=== PATIENT | male | born 1965 | race Caucasian/White ===

== ENCOUNTER 2016-09-25 10:35 | Emergency (ER) | payer OTHER ==
[~2016-09-25] VITALS: Ht 180.3 cm; Wt 76.0 kg
[~2016-09-25 10:35] MED LIST: EC-N500T7; METH500T3; OXYC-360
[2016-09-25 10:36] VITALS: BP 150/95; PULSE 77; RESP 20; TEMP 97.6; O2SAT 97
--- NOTE | 2016-09-25 11:25 | PD ---
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 pos deep lac. no numbness or tingling. pt not given any meds. vital signs stable. awaiting bed placement Data Data Last Documented VS Vital Signs Date Time Temp Pulse Resp B/P Pulse Ox O2 Delivery O2 Flow Rate FiO2 09/25/16 10:36 97.6 77 20 150/95 97 Room Air [facility] Medical Record Reviewed: Yes Supervised Visit with BO: Yes Drew Woodson Sep 25, 2016 11:25
[2016-09-25 12:00] VITALS: BP 140/82; PULSE 76; RESP 16; TEMP 97.8; O2SAT 99
[2016-09-25] MEDS ORDERED: ceFAZolin 2 GM PREMIX 50 ML IV ONE (12:15)
--- NOTE | 2016-09-25 12:17 | PD ---
HPI Chief Complaint: Injury Time Seen by Provider: 12:14 Travel History International Travel<30 days: No Contact w/Intl Traveler<30days: No Traveled to known affect area: No History of Present Illness HPI Patient is 51-year-old male presenting to emergency from for evaluation of a laceration to his left hand. Patient states he was using a flute grinder when it slipped cutting him in between his second and third fingers. Patient initially went to urgent care for treatment however the severity of the wound exceeded their capabilities patient was sent here for evaluation. Patient rates his pain as a 10 out of 10 and describes as aching and throbbing. Patient denies any weakness in his extremities. He has no significant past medical history. [facility] Past Medical History Medical History: Denies Significant Hx Diminished Hearing: No Tetanus Vaccination: > 5 Years Influenza Vaccination: No Past Surgical History Surgical History: No Previous Surgery Social History Alcohol Use: Yes (RARE) Tobacco Use: Yes Substance Use: No Allergies-Medications (Allergen,Severity, Reaction): Coded Allergies: No Known Allergies (Unverified , 09/25/16) Reported Meds & Prescriptions Reported Meds & Active Scripts Active Keflex (Cephalexin) 500 Mg Cap 500 Mg PO Q12H 7 Days Ibuprofen 800 Mg Tab 800 Mg PO Q6HR PRN Review of Systems Except as stated in HPI: all other systems reviewed are Neg Musculoskeletal: Positive: Pain Skin: Positive Other Physical Exam Narrative GENERAL: We'll developed, well-nourished, alert male. Appears uncomfortable, in no acute distress. SKIN: Focused skin assessment warm/dry. Laceration in between second and third digits on the left hand extending approximately 1 inch in between MCP's. HEAD: Atraumatic. Normocephalic. EYES: Pupils equal and round. No scleral icterus. No injection or drainage. ENT: No nasal bleeding or discharge. Mucous membranes pink and moist. NECK: Trachea midline. No JVD. CARDIOVASCULAR: Regular rate and rhythm. No murmur appreciated. RESPIRATORY: No accessory muscle use. Clear to auscultation. Breath sounds equal bilaterally. GASTROINTESTINAL: Abdomen soft, non-tender, nondistended. Hepatic and splenic margins not palpable. MUSCULOSKELETAL: No obvious deformities. No clubbing. No cyanosis. No edema. Positive radial pulse, brisk less than 3 second capillary refill. NEUROLOGICAL: Awake and alert. No obvious cranial nerve deficits. Motor grossly within normal limits. Normal speech. PSYCHIATRIC: Appropriate mood and affect; insight and judgment normal. Data Data Last Documented VS Vital Signs Date Time Temp Pulse Resp B/P Pulse Ox O2 Delivery O2 Flow Rate FiO2 09/25/16 16:00 98.1 77 16 140/78 100 Room Air Orders Hand, Complete ([id number]) (09/25/16 ) Complete Blood Count With Diff (09/25/16 12:10) Basic Metabolic Panel (Bmp) (09/25/16 12:10) Act Partial Throm Time (Ptt) (09/25/16 12:10) Prothrombin Time / Inr (Pt) (09/25/16 12:10) Iv Access Insert/Monitor (09/25/16 12:10) Cefazolin 2 Gm Premix (Ancef 2 Gm Premix (09/25/16 12:15) Tetanus/Diphtheria Tox Adult (Tetanus/Di (09/25/16 12:30) Ondansetron Inj (Zofran Inj) (09/25/16 12:30) Morphine Inj (Morphine Inj) (09/25/16 12:30) Lidocaine 2% Inj (Xylocaine 2% Inj) (09/25/16 12:30) Bupivacaine-Epi Pf 0.25% Inj (Sensorcain (09/25/16 16:00) Povidone Iodine 10% Oint (Betadine 10% O (09/25/16 18:45) Telfa Pad 3x8 (09/25/16 18:32) Labs Laboratory Tests Test 09/25/16 12:21 White Blood Count 9.5 TH/MM3 Red Blood Count 4.64 MIL/MM3 Hemoglobin 14.7 GM/DL Hematocrit 42.7 % Mean Corpuscular Volume 92.2 FL Mean Corpuscular Hemoglobin 31.6 PG Mean Corpuscular Hemoglobin 34.3 % Concent Red Cell Distribution Width 13.4 % Platelet Count 196 TH/MM3 Mean Platelet Volume 8.7 FL Neutrophils (%) (Auto) 71.5 % Lymphocytes (%) (Auto) 18.5 % Monocytes (%) (Auto) 8.2 % Eosinophils (%) (Auto) 1.1 % Basophils (%) (Auto) 0.7 % Neutrophils # (Auto) 6.8 TH/MM3 Lymphocytes # (Auto) 1.8 TH/MM3 Monocytes # (Auto) 0.8 TH/MM3 Eosinophils # (Auto) 0.1 TH/MM3 Basophils # (Auto) 0.1 TH/MM3 CBC Comment DIFF FINAL Differential Comment Prothrombin Time 12.0 SEC Prothromb Time International 1.1 RATIO Ratio Activated Partial 29.1 SEC Thromboplast Time Sodium Level 138 MEQ/L Potassium Level 4.0 MEQ/L Chloride Level 101 MEQ/L Carbon Dioxide Level 28.0 MEQ/L Anion Gap 9 MEQ/L Blood Urea Nitrogen 15 MG/DL Creatinine 0.76 MG/DL Estimat Glomerular Filtration 108 ML/MIN Rate Random Glucose 106 MG/DL Calcium Level 8.9 MG/DL MDM Medical Decision Making Medical Screen Exam Complete: Yes Emergency Medical Condition: Yes Interpretation(s) Vital Signs Date Time Temp Pulse Resp B/P Pulse Ox O2 Delivery O2 Flow Rate FiO2 09/25/16 11:52 17 98 Room Air 09/25/16 10:36 97.6 77 20 150/95 97 Room Air Differential Diagnosis Open fracture versus tendon injury versus laceration versus retained foreign body versus other Narrative Course Patient is a 51-year-old male that presented to the emergency department for evaluation of a laceration to his left hand in between the second and third fingers sending into the MCP space. Patient is neurovascularly intact. Labs reviewed and are unremarkable. X-ray of the left hand shows significant amount of retained foreign material. Left hand was anesthetized with 2% lidocaine, irri-max x2 was used to irrigate the wound thoroughly. 2 large pieces of metallic fragments were removed, it continues to be multiple pieces of small metallic particles in left hand, discussed with Dr. Peña who stated that he would come to the emergency department after he was finished with a procedure to remove remaining particles. He requested Marcaine with epinephrine as well as a plastics tray to be set up at bedside. Left hand was anesthetized with Marcaine with epinephrine as suggested by Dr. Peña. Supplies at bedside. 1820- Dr. Peña at bedside removing foreign particles. He will also repair laceration. Please see his note for procedure report. Patient given verbal instructions regarding wound/laceration care as well as signs and symptoms of infection. He was encouraged to follow-up with Dr. Peña. He was encouraged to return to emergency department for any new or worsening symptoms. Patient verbalized understanding of these instructions. Patient is stable for discharge Diagnosis Primary Impression: Laceration of hand with foreign body Qualified Code: S61.422A - Laceration of left hand with foreign body, initial encounter Referrals: Yasmin Peña MD call for appointment Dr. Peña wants to see you in the office on . Call tomorrow to schedule appointment Patient Instructions: Care For Your Stitches (ED), General Instructions, Laceration (ED) Additional Instructions: Follow up with DR. Peña as advised Complete full course of antibiotics Keep wound clean and dry, cover with non-occlusive dressing. Return to the emergency department for any new or worsening symptoms. Med/Other Pt SpecificInfo: Prescription(s) given Scripts Cephalexin (Keflex)500 Mg [id number] Mg PO Q12H 7 Days Ref 0 Prov:Tamara Babcock 09/25/16 Ibuprofen 800 Mg Bor414 Mg PO Q6HR PRN (PAIN) #40 TAB Ref 0 Prov:Tamara Babcock 09/25/16 Disposition: 01 DISCHARGE HOME Condition: Stable Tamara Babcock Sep 25, 2016 12:17
[2016-09-25] MEDS ORDERED: TETANUS/DIPHTHERIA TOXOID ADULT 0.5 ML VIAL IM ONE (12:30)
[2016-09-25] MEDS ORDERED: MORPHINE SULFATE 4 MG/ML INJ IV PUSH ONE (12:30)
[2016-09-25] MEDS ORDERED: ONDANSETRON HCL 4 MG/2 ML VIAL IV ONE (12:30)
[2016-09-25] MEDS ORDERED: LIDOCAINE HCL 2% 20 ML VIAL INFIL ONE (12:30)
[2016-09-25 12:56] LABS: AUTOMATED NEUTROPHIL # 6.8 TH/MM3 (1.8-7.7); BASOPHIL # 0.1 TH/MM3 (0-0.2); BASOPHIL % 0.7 % (0.0-2.0); EOSINOPHIL # 0.1 TH/MM3 (0-0.4); EOSINOPHIL % 1.1 % (0.0-4.0); HEMATOCRIT 42.7 % (39.0-51.0); HEMO FLAGS DIFF FINAL; LYMPH % 18.5 % (9.0-44.0); LYMPHOCYTE # 1.8 TH/MM3 (1.0-4.8); MEAN CELL VOLUME 92.2 FL (80.0-100.0); MEAN CORPUSCULAR HEMOGLOBIN 31.6 PG (27.0-34.0); MEAN CORPUSCULAR HGB CONC 34.3 % (32.0-36.0); MONO % 8.2 % (0.0-8.0); NEUT % 71.5 % (16.0-70.0); PLATELET COUNT 196 TH/MM3 (150-450); RED BLOOD COUNT 4.64 MIL/MM3 (4.50-5.90); RED CELL DISTRIBUTION WIDTH 13.4 % (11.6-17.2); WHITE BLOOD COUNT 9.5 TH/MM3 (4.0-11.0)
[2016-09-25 13:08] LABS: APTT (PATIENT) 29.1 SEC (24.3-30.1); INTERNATIONAL NORMALIZED RATIO 1.1 RATIO
--- NOTE | 2016-09-25 13:19 | RADRPT ---
EXAM DATE/TIME: 09/25/2016 12:30 [facility] COMPARISON: No previous studies available for comparison. INDICATIONS : Evaluate for foreign body. Lacerated by a paint grinder. MEDICAL HISTORY : None. SURGICAL HISTORY : None. ENCOUNTER: Initial ACUITY: 1 day PAIN SCORE: 10/10 LOCATION: Left posterior hand FINDINGS: The exam demonstrates multiple radiodense foreign bodies in the webspace between the second and third digits. The osseous structures are intact. CONCLUSION: 1. Multiple radiodense foreign bodies as above. Giuliano Butler MD on September 25, 2016 at 13:16 Board Certified Radiologist. This report was verified electronically.
[2016-09-25 14:00] VITALS: BP 140/77; PULSE 76; RESP 17; TEMP 97.8; O2SAT 99
[2016-09-25] MEDS ORDERED: BUPIVACAINE/EPINEPHRINE 0.25% PF 30 ML VIAL NERV BLOCK ONE (14:45)
[2016-09-25 16:00] VITALS: BP 140/78; PULSE 77; RESP 16; TEMP 98.1; O2SAT 100
[2016-09-25] MEDS ORDERED: BUPIVACAINE/EPINEPHRINE 0.25% PF 10 ML VIAL NERV BLOCK ONE (16:00)
[2016-09-25] MEDS ORDERED: POVIDONE IODINE 10% OINT 30 GM TUBE TOPICAL ONE (18:45)
[2016-09-25] MEDS ORDERED: CEPH-460 PO (18:48)
[2016-09-25] MEDS ORDERED: IBUP800T23 PO (18:48)
[2016-09-25 19:09] VITALS: BP 130/77; TEMP 97.8
--- NOTE | 2016-09-27 23:47 | MB ---
cc: FIONA FRYE M.D.,MARY Barbosa MD DATE OF CONSULTATION: 09/25/2016 REASON FOR CONSULTATION: Injury to the left hand. HISTORY OF PRESENT ILLNESS The patient is a 51-year-old male who came into the emergency room after a laceration to his left hand. The patient states that he was using a centerless grinder set up operator when it slipped, cutting him in between his second and third fingers. It was noted in the emergency room that the patient had a significant amount of contamination of the wound but there was no evidence of significant tendon injury. It was down to the bone. Consultation is requested regarding evaluation and treatment of this injury. PAST MEDICAL HISTORY: Denies high blood pressure, diabetes, heart disease, kidney disease, liver disease or diseases of infectious etiology. PAST SURGICAL HISTORY Denied. SOCIAL HISTORY The patient rarely drinks alcohol but he does smoke cigarettes. ALLERGIES None. MEDICATIONS: Medications are listed on the chart. REVIEW OF SYSTEMS: The review of systems is negative for 10 systems except as related to the injury. PHYSICAL EXAMINATION: On examination the patient is lying comfortably on the stretcher. Extraocular muscles are intact. HEENT: Pupils are equal, round, reactive to light. Mouth is clear. Neck: Neck is supple without masses. Lungs: His lungs are clear. Heart: Heart has a regular rate and rhythm. Extremities: Upper extremities reveals a 4 cm laceration on the dorsal aspect of his left hand between the index and middle fingers. The wound is irregular and extends all the way to the bone. There is a significant amount of foreign material in the wound. This was confirmed on the x-ray. Vital signs: Temperature is 98.1, pulse 77, respirations 16, blood pressure 140/78 and pulse oximeter is 100% on room air. IMPRESSION The patient has a laceration to the dorsal aspect of his left hand without evidence of the tendon injury. There is an injury to the bone but it is superficial. PLAN The patient is advised that I will clean the wound out and close the wound. The patient will then follow up in my office in several days. He understands and accepts the risks and complications of the procedure. Fiona Frye MD [facility]IE /9:31 PM /11:34 PM
--- NOTE | 2016-09-29 12:31 | MP ---
cc: FIONA FRYE M.D. DATE OF SURGERY 09/25/2016 PREOPERATIVE DIAGNOSIS Open contaminated wound of left hand. POSTOPERATIVE DIAGNOSIS Open contaminated wound of left hand. PROCEDURE 1. Excisional debridement of the left hand including skin, subcutaneous tissue and bone. 2. Complex repair of 3.5 cm laceration of the left hand. ANESTHESIA Local. SURGEON Dr. Frye INDICATIONS A 51-year-old male with a edge grinder injury to his left hand. FINDINGS At the completion of the procedure all of the visible contaminated material had been removed, the bone was debrided and the wound was closed. OPERATIVE TIME One hour. PROCEDURE The patient was seen in the emergency room where the operation was performed. His left hand was prepped with Betadine and draped in the usual sterile fashion. Bupivacaine 0.5% with epinephrine 1:200,000 was injected into the wound. Once the anesthetic had taken effect, the necrotic material was removed from the edges by excising the edges of the wound. In addition the foreign material was removed. Once the material was removed, and this took approximately 30 minutes, the bone was scraped to remove contamination and, after copious irrigation the wound was closed with interrupted and running 4-0 nylon suture material. Once the wound was closed, the hand was cleansed of Betadine and blood. A dressing was applied using povidone-iodine ointment, Adaptic, Telfa, 4x4s, hand wrap. The patient was then given back to the care of the ER staff for disposition for including the use of antibiotics and pain medicine. The patient is to follow up later in the week in my office. MD SHELDON Dalal/IRVIN /9:35 PM /12:20 PM
== END 2016-09-25 19:57 | disposition home or self-care (01) ==
LOC: NEPA 10:35
DX: S61.422A Laceration with foreign body of left hand, initial encounter (principal); W31.89XA Contact with other specified machinery, initial encounter; Z23 Encounter for immunization
CPT/HCPCS: 11044; 73130; 80048; 85025; 85610; 85730; 90471; 90714; 96365; 96375; 99283; J0690; J2270; J2405; 12042

== ENCOUNTER 2017-06-18 20:10 | Observation (INO) | payer SELFPAY ==
[~2017-06-18] VITALS: Ht 180.3 cm; Wt 73.0 kg
[2017-06-18 20:13] VITALS: BP 149/95; PULSE 100; RESP 20; TEMP 97.6; O2SAT 98
[2017-06-18] MEDS ORDERED: SODIUM CHLOR 0.9% 1000 ML INJ 1,000 ML IV SCH (20:30)
[2017-06-18] MEDS ORDERED: GLUCAGON 1 MG/ML VIAL IV PUSH ONE (20:30)
[2017-06-18] MEDS ORDERED: ONDANSETRON HCL 4 MG/2 ML VIAL IV PUSH ONE (20:30)
--- NOTE | 2017-06-18 20:44 | PD ---
HPI Chief Complaint: Foreign Body Time Seen by Provider: 20:17 Travel History International Travel<30 days: No Contact w/Intl Traveler<30days: No Traveled to known affect area: No History of Present Illness HPI So 52-year-old man, no medical history, presents with foreign body sensation. States he was eating goat meat with a bone in it and he feels like he aspirated or swallowed ago. He states he is not able to swallow since then. He tried to induce vomiting which did not relieve symptoms started about 30 minutes prior to arrival. He feels the pain in the very top of his chest. No history of previous similar symptoms. Unable to swallow at this time. Some shortness of breath as well. History Past Medical History Medical History: Denies Significant Hx Influenza Vaccination: No Past Surgical History Surgical History: No Previous Surgery Social History Alcohol Use: Yes (RARE) Tobacco Use: Yes Allergies-Medications (Allergen,Severity, Reaction): Coded Allergies: No Known Allergies (Unverified Adverse Reaction, Unknown, 06/18/17) Reported Meds & Prescriptions Reported Meds & Active Scripts Active No Active Prescriptions or Reported Medications Review of Systems Except as stated in HPI: all other systems reviewed are Neg Physical Exam Narrative GENERAL: 52-year-old man, appears uncomfortable, intermittently retching, spitting. SKIN: Focused skin assessment warm/dry. ENT: No nasal bleeding or discharge. Mucous membranes pink and moist. NECK: Trachea midline. No JVD. CARDIOVASCULAR: Regular rate and rhythm. No murmur appreciated. RESPIRATORY: No accessory muscle use. Clear to auscultation. Breath sounds equal bilaterally. GASTROINTESTINAL: Abdomen soft, non-tender, nondistended. Hepatic and splenic margins not palpable. MUSCULOSKELETAL: No obvious deformities. No edema. NEUROLOGICAL: Awake and alert. No obvious cranial nerve deficits. Motor grossly within normal limits. Normal speech. PSYCHIATRIC: Anxious. Data Data Last Documented VS Vital Signs Date Time Temp Pulse Resp B/P (MAP) Pulse Ox O2 Delivery O2 Flow Rate FiO2 06/18/17 21:03 91 20 141/86 (104) 97 Room Air 06/18/17 20:13 97.6 Orders Orders Soft Tissue Neck (06/18/17 ) Chest, Single Ap (06/18/17 ) Iv Access Insert/Monitor (06/18/17 20:20) NPO (06/18/17 20:20) Sodium Chlor 0.9% 1000 Ml Inj (Ns 1000 M (06/18/17 20:30) Glucagon Inj (Glucagon Inj) (06/18/17 20:30) Ondansetron Inj (Zofran Inj) (06/18/17 20:30) Basic Metabolic Panel (Bmp) (06/18/17 21:01) Complete Blood Count With Diff (06/18/17 21:01) Consult Gastroenterology (06/18/17 ) Admit Order (Ed Use Only) (06/18/17 ) Place In Observation (06/18/17 ) Vital Signs (Adult) Q4H (06/18/17 21:16) Activity Oob With Assistance (06/18/17 21:16) Diet Npo (06/19/17 Breakfast) Sodium Chloride 0.9% Flush (Ns Flush) (06/18/17 21:30) Sodium Chloride 0.9% Flush (Ns Flush) (06/19/17 09:00) Ondansetron Inj (Zofran Inj) (06/18/17 21:30) Basic Metabolic Panel (Bmp) (06/19/17 06:00) Complete Blood Count With Diff (06/19/17 06:00) Scd Bilateral/Knee High DAVID.BID (06/18/17 21:16) Maurice Bilateral/Knee High DAVID.QSHIFT (06/18/17 21:16) Naloxone Inj (Narcan Inj) (06/18/17 21:30) MDM Medical Decision Making Medical Screen Exam Complete: Yes Emergency Medical Condition: Yes Interpretation(s) My review of images of the neck and chest, no bony foreign body. Gaseous distention of the stomach. Differential Diagnosis Foreign body, esophageal impaction, stricture, laceration, esophageal perforation, other Narrative Course Medical decision-making INITIAL: 52-year-old man, likely esophageal foreign body, we'll check x-rays, trichomoniasis local doctor, discussed with GI. Physician Communication Physician Communication 9 PM: Spoke with Dr. Cuello, GI. Discussed with this patient has a complete esophageal obstruction, will need evaluation. States he'll come and evaluate the patient. Will admit patient. Request phone call when Patient gets the floor.when Diagnosis Primary Impression: Esophageal obstruction Admitting Information Admitting Physician Requests: Observation Scripts No Active Prescriptions or Reported Meds Nadeem Harp MD Jun 18, 2017 20:44
[2017-06-18 21:03] VITALS: BP 141/86; PULSE 91; RESP 20; O2SAT 97
[2017-06-18 21:29] LABS: AUTOMATED NEUTROPHIL # 4.5 TH/MM3 (1.8-7.7); BASOPHIL % 0.6 % (0.0-2.0); EOSINOPHIL # 0.2 TH/MM3 (0-0.4); EOSINOPHIL % 3.3 % (0.0-4.0); HEMOGLOBIN 15.5 GM/DL (13.0-17.0); LYMPH % 22.4 % (9.0-44.0); LYMPHOCYTE # 1.6 TH/MM3 (1.0-4.8); MEAN CELL VOLUME 94.1 FL (80.0-100.0); MEAN CORPUSCULAR HEMOGLOBIN 31.7 PG (27.0-34.0); MEAN CORPUSCULAR HGB CONC 33.7 % (32.0-36.0); MEAN PLATELET VOLUME 8.3 FL (7.0-11.0); MONO % 9.2 % (0.0-8.0); MONOCYTE # 0.6 TH/MM3 (0-0.9); NEUT % 64.5 % (16.0-70.0); PLATELET COUNT 207 TH/MM3 (150-450); RED BLOOD COUNT 4.89 MIL/MM3 (4.50-5.90); RED CELL DISTRIBUTION WIDTH 13.8 % (11.6-17.2)
[2017-06-18] MEDS ORDERED: NALOXONE HCL 0.4 MG/ML AMP IV PUSH PRN (21:30)
[2017-06-18] MEDS ORDERED: LORazepam 1 MG TAB PO PRN (21:30)
[2017-06-18] MEDS ORDERED: LORazepam 2 MG/ML VIAL IV PUSH PRN ×4 (21:30)
[2017-06-18] MEDS ORDERED: FLUMAZENIL 0.5 MG/5 ML VIAL IV PUSH PRN (21:30)
[2017-06-18] MEDS ORDERED: ONDANSETRON HCL 4 MG/2 ML VIAL IVP PRN (21:30)
[2017-06-18] MEDS ORDERED: LORazepam 2 MG TAB PO PRN (21:30)
[2017-06-18] MEDS ORDERED: SODIUM CHLORIDE 0.9% FLUSH 10 ML FLUSH IV FLUSH PRN (21:30)
--- NOTE | 2017-06-18 21:38 | RADRPT ---
EXAM DATE/TIME: 06/18/2017 20:42 [facility] COMPARISON: No previous studies available for comparison. INDICATIONS : Patient states he has a goat bone stuck in throat. Evaluate for foreign body. MEDICAL HISTORY : None. SURGICAL HISTORY : None. ENCOUNTER: Initial ACUITY: 1 day PAIN SCORE: 0/10 LOCATION: Bilateral chest FINDINGS: Single AP view of the chest. The lungs are clear. Cardiomediastinal silhouette within normal limits. No evidence of pleural effusion or pneumothorax. Moderately distended air-filled stomach. CONCLUSION: 1. No acute cardiopulmonary disease identified. 2. Air-filled distended stomach. Chauncey Contreras MD on June 18, 2017 at 21:36 Board Certified Radiologist. This report was verified electronically.
--- NOTE | 2017-06-18 21:39 | RADRPT ---
EXAM DATE/TIME: 06/18/2017 20:43 [facility] COMPARISON: No previous studies available for comparison. INDICATIONS : Patient states he has a goat bone stuck in throat. Evaluate for foreign body. MEDICAL HISTORY : None. SURGICAL HISTORY : None. ENCOUNTER: Initial ACUITY: 1 day PAIN SCORE: 0/10 LOCATION: esophagus FINDINGS: 2 views of the cervical spine. Small endplate osteophytes at C5-6 and C6-7. Bone alignment within nor mal limits. No evidence of fracture. CONCLUSION: 1. No evidence of fracture. 2. Mild bony degenerative findings. Chauncey Contreras MD on June 18, 2017 at 21:37 Board Certified Radiologist. This report was verified electronically.
--- NOTE | 2017-06-18 21:39 | HHI.HP ---
[facility] Service [facility] Primary Care Physician Unknown Admission Diagnosis esophageal obstruction Diagnoses: Travel History International Travel<30 Days: No Contact w/Intl Traveler <30 Da: No Traveled to Known Affected Are: No History of Present Illness 52-year-old male with no significant past medical history presents to the emergency department after choking on a goat bone. The patient reports he was eating goat meat off the bone when he accidentally swallowed the chunk of meat with the bone attached. He reports he feels as though the bone is lodged in his esophagus. He reports difficulty breathing although has no problem with speech. He is currently dry heaving and spitting into a bag at bedside. He complains of pain at the very top of his chest. Review of Systems Denies fever or chills Denies blurry vision, otorrhea, rhinorrhea Denies sore throat and cough No chest pain, palpitations, positive shortness of breath No abdominal pain Denies constipation/diarrhea/nausea/vomiting Denies muscle pain/weakness No rashes Past Family Social History Past Medical History None Past Surgical History Patient denied Reported Medications None Allergies: Coded Allergies: No Known Allergies (Unverified Allergy, Unknown, 06/18/17) Family History Negative for CAD/DM Social History Reports occasional alcohol but refuses to further quantify. Smokes approximately half pack per day. Denies illicit drugs. Physical Exam Vital Signs Vital Signs Date Time Temp Pulse Resp B/P (MAP) Pulse Ox O2 Delivery O2 Flow Rate FiO2 06/18/17 21:03 91 20 141/86 (104) 97 Room Air 06/18/17 20:13 97.6 100 20 149/95 (113) 98 Physical Exam GENERAL: Male sitting up in bed retching into bag SKIN: No rashes, ecchymoses or lesions. Cool and dry. HEAD: Atraumatic. Normocephalic. No temporal or scalp tenderness. EYES: Pupils equal round and reactive. Extraocular motions intact. No scleral icterus. No injection or drainage. ENT: Nose without bleeding, purulent drainage or septal hematoma. Throat without erythema, tonsillar hypertrophy or exudate. Uvula midline. Airway patent. No foreign objects visualized. NECK: Trachea midline. No JVD or lymphadenopathy. Supple, nontender, no meningeal signs. CARDIOVASCULAR: Regular rate and rhythm without murmurs, gallops, or rubs. RESPIRATORY: Clear to auscultation. Breath sounds equal bilaterally. No wheezes , rales, or rhonchi. GASTROINTESTINAL: Abdomen soft, non-tender, nondistended. No hepato-splenomegaly , or palpable masses. No guarding. MUSCULOSKELETAL: Extremities without clubbing, cyanosis, or edema. No joint tenderness, effusion, or edema noted. No calf tenderness. NEUROLOGICAL: Awake and alert. Cranial nerves II through XII intact. Motor and sensory grossly within normal limits. Normal speech. Laboratory Laboratory Tests Test 06/18/17 21:10 White Blood Count 7.0 Red Blood Count 4.89 Hemoglobin 15.5 Hematocrit 46.0 Mean Corpuscular Volume 94.1 Mean Corpuscular Hemoglobin 31.7 Mean Corpuscular Hemoglobin Concent 33.7 Red Cell Distribution Width 13.8 Platelet Count 207 Mean Platelet Volume 8.3 Neutrophils (%) (Auto) 64.5 Lymphocytes (%) (Auto) 22.4 Monocytes (%) (Auto) 9.2 Eosinophils (%) (Auto) 3.3 Basophils (%) (Auto) 0.6 Neutrophils # (Auto) 4.5 Lymphocytes # (Auto) 1.6 Monocytes # (Auto) 0.6 Eosinophils # (Auto) 0.2 Basophils # (Auto) 0.0 CBC Comment DIFF FINAL Differential Comment Result Diagram: 06/18/172109 Caprini VTE Risk Assessment Caprini VTE Risk Assessment: No/Low Risk (score <= 1) Caprini Risk Assessment Model Point Value = 1 Point Value = 2 Point Value = 3 Point Value = 5 Age 41-60 Minor surgery BMI > 25 kg/m2 Swollen legs Varicose veins or History of unexplained or recurrent spontaneous Oral contraceptives or hormone replacement Sepsis (< 1 month) Serious lung disease, including pneumonia (< 1 month) Abnormal pulmonary function Acute myocardial infarction Congestive heart failure (< 1 month) History of inflammatory bowel disease Medical patient at bed rest Age 61-74 Arthroscopic surgery Major open surgery (> 45 min) Laparoscopic surgery (> 45 min) Malignancy Confined to bed (> 72 hours) Immobilizing plaster cast Central venous access Age >= 75 History of VTE Family history of VTE Factor V Leiden Prothrombin [id number] Lupus anticoagulant Anticardiolipin antibodies Elevated serum homocysteine Heparin-induced thrombocytopenia Other congenital or acquired thrombophilia Stroke (< 1 month) Elective arthroplasty Hip, pelvis, or leg fracture Acute spinal cord injury (< 1 month) Prophylaxis Regimen Total Risk Factor Score Risk Level Prophylaxis Regimen 0-1 Low Early ambulation 2 Moderate Order ONE of the following: *Sequential Compression Device (SCD) *Heparin 5000 units SQ BID 3-4 Higher Order ONE of the following medications: *Heparin 5000 units SQ TID *Enoxaparin/Lovenox 40 mg SQ daily (WT < 150 kg, CrCl > 30 mL/min) *Enoxaparin/Lovenox 30 mg SQ daily (WT < 150 kg, CrCl > 10-29 mL/min) *Enoxaparin/Lovenox 30 mg SQ BID (WT < 150 kg, CrCl > 30 mL/min) AND/OR *Sequential Compression Device (SCD) 5 or more Highest Order ONE of the following medications: *Heparin 5000 units SQ TID (Preferred with Epidurals) *Enoxaparin/Lovenox 40 mg SQ daily (WT < 150 kg, CrCl > 30 mL/min) *Enoxaparin/Lovenox 30 mg SQ daily (WT < 150 kg, CrCl > 10-29 mL/min) *Enoxaparin/Lovenox 30 mg SQ BID (WT < 150 kg, CrCl > 30 mL/min) AND *Sequential Compression Device (SCD) Assessment and Plan Assessment and Plan Assessment/plan: 1. Foreign body in the esophagus Gastroenterology consulted, Dr. Castañeda will see the patient tonramez BOONE NPO Electrolytes: pending, monitor and replete prn Holding pharmacologic anticoagulation in anticipation of procedure this evening Laura Calhoun MD Jun 18, 2017 21:39
[2017-06-18 22:19] LABS: BICARBONATE 23.7 MEQ/L (21.0-32.0); CALCIUM 7.5 MG/DL (8.5-10.1); CREATININE 0.89 MG/DL (0.60-1.30)
[2017-06-19] MEDS ORDERED: SODIUM CHLORIDE 0.9% FLUSH 10 ML FLUSH IV FLUSH SCH (09:00)
[2017-06-19] MEDS ORDERED: MULTIVITAMINS/MINERALS THERAPEUTIC TAB PO SCH (09:00)
[2017-06-19] MEDS ORDERED: THIAMINE HCL 100 MG TAB PO SCH (09:00)
[2017-06-19] MEDS ORDERED: FOLIC ACID 1 MG TAB PO SCH (09:00)
== END 2017-06-18 21:40 | disposition left against medical advice (07) ==
LOC: NEPE 20:10 → NEDA 21:16
PROVIDERS: ADMIT Family Medicine; ATTEND Family Medicine
DX: T18.108A Unspecified foreign body in esophagus causing other injury, initial encounter (principal); K22.2 Esophageal obstruction; F17.210 Nicotine dependence, cigarettes, uncomplicated
CPT/HCPCS: 70360; 71010; 80048; 85025; 96361; 96374; 96375; 99285; J1610; J2405; J7030

== ENCOUNTER 2017-09-12 10:00 | Emergency (ER) | payer OTHER ==
[~2017-09-12] VITALS: Ht 177.8 cm; Wt 80.0 kg
[2017-09-12 10:30] VITALS: BP 139/73; PULSE 71; RESP 16; TEMP 98.3; O2SAT 98
[2017-09-12 14:38] VITALS: BP 172/99; PULSE 69; RESP 18; O2SAT 97
--- NOTE | 2017-09-12 15:18 | PD ---
HPI Chief Complaint: Complaint Time Seen by Provider: 14:34 Travel History International Travel<30 days: No Contact w/Intl Traveler<30days: No Traveled to known affect area: No History of Present Illness HPI 52yo M with no PMH presents to the ED with 2 different complaints. Pt is mainly here for rectal/lower GI bleed for 3 weeks. Said he has been needing to strain during bowel movement but stool is soft. Sometimes it is mixed with bright red blood and sometimes bright red blood comes out without bowel movement. Denies any fever, chest pain, sob, dizziness, n/v, abdominal pain, focal weakness or numbness. Pt has not had a colonoscopy. He said he swallowed a fish bone in May 2017 and thinks that may having something to do with this. Pt is also complaining of difficulty starting urination for a while. PFSH Past Medical History Medical History: Denies Significant Hx Diminished Hearing: No Influenza Vaccination: No Past Surgical History Surgical History: No Previous Surgery Social History Alcohol Use: Yes (RARE) Tobacco Use: Yes (1/2 ppd) Substance Use: No Allergies-Medications (Allergen,Severity, Reaction): Coded Allergies: No Known Allergies (Unverified Allergy, Unknown, 09/12/17) Reported Meds & Prescriptions Reported Meds & Active Scripts Active No Active Prescriptions or Reported Medications Review of Systems Except as stated in HPI: all other systems reviewed are Neg Physical Exam Narrative GENERAL: 52yo M not in distress. SKIN: Focused skin assessment warm/dry. HEAD: Atraumatic. Normocephalic. EYES: Pupils equal and round. No scleral icterus. No injection or drainage. CARDIOVASCULAR: Regular rate and rhythm. No murmur appreciated. RESPIRATORY: No accessory muscle use. Clear to auscultation. Breath sounds equal bilaterally. GASTROINTESTINAL: Abdomen soft, non-tender, nondistended. No rebound tenderness or guarding. RECTAL: +External hemorrhoid that is soft to palpation. +Yellow stool but hemaprompt positive. MUSCULOSKELETAL: No obvious deformities. No clubbing. No cyanosis. No edema. NEUROLOGICAL: Awake and alert. No obvious cranial nerve deficits. Motor grossly within normal limits. Normal speech. PSYCHIATRIC: Appropriate mood and affect; insight and judgment normal. Data Data Last Documented VS Vital Signs Date Time Temp Pulse Resp B/P (MAP) Pulse Ox O2 Delivery O2 Flow Rate FiO2 09/12/17 14:38 69 18 172/99 (123) 97 Room Air 09/12/17 10:30 98.3 Orders Orders Basic Metabolic Panel (Bmp) (09/12/17 15:05) Complete Blood Count With Diff (09/12/17 15:05) Prothrombin Time / Inr (Pt) (09/12/17 15:05) Act Partial Throm Time (Ptt) (09/12/17 15:05) Urinalysis - C+S If Indicated (09/12/17 15:05) Type And Screen (09/12/17 15:05) Pantoprazole (Protonix) (09/12/17 15:30) Labs Laboratory Tests Test 09/12/17 15:15 09/12/17 15:20 White Blood Count 8.0 TH/MM3 Red Blood Count 4.96 MIL/MM3 Hemoglobin 15.9 GM/DL Hematocrit 45.6 % Mean Corpuscular Volume 92.0 FL Mean Corpuscular Hemoglobin 32.0 PG Mean Corpuscular Hemoglobin Concent 34.8 % Red Cell Distribution Width 13.2 % Platelet Count 203 TH/MM3 Mean Platelet Volume 8.0 FL Neutrophils (%) (Auto) 67.4 % Lymphocytes (%) (Auto) 19.7 % Monocytes (%) (Auto) 9.8 % Eosinophils (%) (Auto) 2.5 % Basophils (%) (Auto) 0.6 % Neutrophils # (Auto) 5.4 TH/MM3 Lymphocytes # (Auto) 1.6 TH/MM3 Monocytes # (Auto) 0.8 TH/MM3 Eosinophils # (Auto) 0.2 TH/MM3 Basophils # (Auto) 0.1 TH/MM3 CBC Comment DIFF FINAL Differential Comment Prothrombin Time 10.4 SEC Prothromb Time International Ratio 1.0 RATIO Activated Partial Thromboplast Time 26.6 SEC Blood Urea Nitrogen 9 MG/DL Creatinine 0.78 MG/DL Random Glucose 93 MG/DL Calcium Level 8.6 MG/DL Sodium Level 140 MEQ/L Potassium Level 3.7 MEQ/L Chloride Level 103 MEQ/L Carbon Dioxide Level 31.4 MEQ/L Anion Gap 6 MEQ/L Estimat Glomerular Filtration Rate 104 ML/MIN Urine Color YELLOW Urine Turbidity CLEAR Urine pH 7.0 Urine Specific [place] 1.017 Urine Protein NEG mg/dL Urine Glucose (UA) NEG mg/dL Urine Ketones NEG mg/dL Urine Occult Blood NEG Urine Nitrite NEG Urine Bilirubin NEG Urine Urobilinogen LESS THAN 2.0 MG/DL Urine Leukocyte Esterase NEG Urine RBC 1 /hpf Urine WBC LESS THAN 1 /hpf Microscopic Urinalysis Comment CULT NOT INDICATED MDM Medical Decision Making Medical Screen Exam Complete: Yes Emergency Medical Condition: Yes Differential Diagnosis Rectal bleed secondary to hemorrhoid vs. lower GI bleed secondary to polyps vs. malignancy Narrative Course 52yo M with rectal vs. lower GI bleed for 3 weeks. Said it is very small amount. Pt has no abdominal pain or other complaints. Pt is hemodynamically stable. Labs reviewed, no leukocytosis. H/H 15.9/45.6. BMP unremarkable. UA negative. Pt is well appearing and needs a colonoscopy as outpatient. Informed pt and return precautions given. [facility] Point of Care Internal Pos. & Neg. Controls: Passed Fecal Specimen Occult Blood: Positive Diagnosis Primary Impression: Rectal bleeding Referrals: Cierra Naik MD call for appointment Patient Instructions: General Instructions Departure Forms: Tests/Procedures Additional Instructions: Please call GI and make appointment with them as soon as you can. Return to the ED if symptoms worsen. Med/Other Pt SpecificInfo: No Change to Meds Scripts No Active Prescriptions or Reported Meds Disposition: 01 DISCHARGE HOME Condition: Stable Paige Markham Sep 12, 2017 15:18
[2017-09-12] MEDS ORDERED: PANTOPRAZOLE SOD 40 MG DELAYED RELEASE TAB PO ONE (15:30)
[2017-09-12 16:07] LABS: AUTOMATED NEUTROPHIL # 5.4 TH/MM3 (1.8-7.7); BASOPHIL # 0.1 TH/MM3 (0-0.2); BASOPHIL % 0.6 % (0.0-2.0); EOSINOPHIL # 0.2 TH/MM3 (0-0.4); EOSINOPHIL % 2.5 % (0.0-4.0); HEMATOCRIT 45.6 % (39.0-51.0); HEMOGLOBIN 15.9 GM/DL (13.0-17.0); LYMPH % 19.7 % (9.0-44.0); LYMPHOCYTE # 1.6 TH/MM3 (1.0-4.8); MEAN CORPUSCULAR HGB CONC 34.8 % (32.0-36.0); MONO % 9.8 % (0.0-8.0); MONOCYTE # 0.8 TH/MM3 (0-0.9); NEUT % 67.4 % (16.0-70.0); PLATELET COUNT 203 TH/MM3 (150-450); RED BLOOD COUNT 4.96 MIL/MM3 (4.50-5.90); RED CELL DISTRIBUTION WIDTH 13.2 % (11.6-17.2)
[2017-09-12 16:15] LABS: BILIRUBIN, URINE NEG (NEG); BLOOD, URINE NEG (NEG); GLUCOSE,URINE NEG (NEG); KETONE, URINE NEG (NEG); NITRITE,URINE NEG (NEG); URINE COLOR YELLOW (YELLW/STRAW); URINE LEUKOCYTE ESTERASE NEG (NEG)
[2017-09-12 16:34] LABS: PROTHROMBIN TIME - PATIENT 10.4 SEC (9.8-11.6)
[2017-09-12 16:51] LABS: BICARBONATE 31.4 MEQ/L (21.0-32.0); CALCIUM 8.6 MG/DL (8.5-10.1); CREATININE 0.78 MG/DL (0.60-1.30)
== END 2017-09-12 17:54 | disposition home or self-care (01) ==
LOC: NEPD 10:00
DX: K62.5 Hemorrhage of anus and rectum (principal); F17.200 Nicotine dependence, unspecified, uncomplicated
CPT/HCPCS: 80048; 81001; 85025; 85610; 85730; 86850; 86900; 86901; 99283